=== PATIENT | female | born 1975 | race Two or more races ===

== ENCOUNTER 2021-09-12 00:26 | Emergency (ER) | payer SELFPAY ==
[~2021-09-12] VITALS: Ht 152.4 cm; Wt 79.9 kg
[2021-09-12 00:58] LABS: BASO % 1 % (0-3); EOS # 0.1 x10^3/uL (0.0-0.7); EOS % 1 % (0-3); HEMATOCRIT 35.9 % (36.0-47.0); HEMOGLOBIN 11.7 g/dL (12.0-15.5); LYMPH # 2.4 x10^3/uL (1.0-4.8); LYMPH % 26 % (24-48); MEAN CORPUSCULAR HEMOGLOBIN 28 pg (25-35); MEAN CORPUSCULAR HGB CONC 33 g/dL (31-37); MEAN CORPUSCULAR VOLUME 86 fL (79-100); MONO # 0.5 x10^3/uL (0.0-1.1); MONO % 5 % (0-9); NEUT # 6.2 x10^3/uL (1.8-7.7); NEUT % 68 % (31-73); PLATELET COUNT 252 x10^3/uL (140-400); RED BLOOD COUNT 4.19 x10^6/uL (3.50-5.40); RED CELL DISTRIBUTION WIDTH 14.3 % (11.5-14.5); WHITE BLOOD COUNT 9.2 x10^3/uL (4.0-11.0)
[2021-09-12 01:00] LABS: U PREG PATIENT NEGATIVE (NEG)
[2021-09-12] MEDS ORDERED: IV NORMAL SALINE 1000ML BAG 1,000 ML IV ONE (01:00)
[2021-09-12] MEDS ORDERED: ONDANSETRON PF 4 MG/2 ML VIAL. IVP ONE (01:00)
[2021-09-12] MEDS ORDERED: LIDO:MAALOX 1:1 20 ML SINGLE DOSE. SWSW ONE (01:00)
--- NOTE | 2021-09-12 01:00 | ED.ADGEN ---
Past Medical History Past Surgical History: Cholecystectomy, , Hysterectomy Smoking Status: Never Smoker Alcohol Use: None General Adult EDM: Chief Complaint: ABDOMINAL PAIN HPI: HPI: Patient is a 46 year old female coming in for epigastric pain. Pain getting worse at the day and got worse with food and apple. The spicy foods prior to pain starting. Took to omeprazole as they got no relief, I think she may have done the lab. That she has had multiple episodes of emesis. But no diarrhea or fevers. No known sick contacts or recent travel. Review of Systems: Review of Systems: All other systems within normal limits except for as noted in the HPI Current Medications: Current Medications Medications (Trade) Dose Ordered Sig/[place] Start Time Stop Time Status Last Admin Dose Admin Famotidine (Pepcid Vial) 20 mg 1X ONCE 09/12/21 02:00 09/12/21 02:01 Multi-Ingredient Mouthwash/Gargle (Gi Cocktail) 20 ml 1X ONCE 09/12/21 01:00 09/12/21 01:01 DC 09/12/21 01:01 20 ML Ondansetron HCl (Zofran) 4 mg 1X ONCE 09/12/21 01:00 09/12/21 01:01 DC 09/12/21 01:01 4 MG Sodium Chloride 1,000 ml @ 1,000 mls/hr 1X ONCE 09/12/21 01:00 09/12/21 01:59 DC 09/12/21 01:00 1,000 MLS/HR Allergies: Allergies: Allergies Coded Allergies Type Severity Reaction Last Updated Verified Penicillins Allergy Intermediate Rash 09/12/21 Yes Physical Exam: PE: Constitutional: Well developed, well nourished, no acute distress, non-toxic appearance. [] HENT: Normocephalic, atraumatic, bilateral external ears normal, nose normal. [] Eyes: PERRLA, conjunctiva normal, no discharge. [] Neck: No rigidity, supple, no stridor. [] Cardiovascular: Regular rate and rhythm, brisk cap refill [] Lungs & Thorax: Non labored symmetric respirations, no tachypnea or respiratory distress [] Abdomen: Soft, nondistended, epigastric tenderness, negative Felder's sign and McBurney's point tenderness. Skin: Warm, dry, no erythema, no rash. [] Back: Unremarkable Extremities: No deformities, range of motion grossly intact, no lower extremity edema [] Neurologic: Alert and oriented X 3, no focal deficits noted. [] Psychologic: Affect normal, judgement normal, mood normal. [] Current Patient Data: Labs: Laboratory Tests Test 09/12/21 00:35 09/12/21 00:40 Urine Test Negative (NEG) White Blood Count 9.2 x10^3/uL (4.0-11.0) Red Blood Count 4.19 x10^6/uL (3.50-5.40) Hemoglobin 11.7 g/dL (12.0-15.5) L Hematocrit 35.9 % (36.0-47.0) L Mean Corpuscular Volume 86 fL (79-100) Mean Corpuscular Hemoglobin 28 pg (25-35) Mean Corpuscular Hemoglobin Concent 33 g/dL (31-37) Red Cell Distribution Width 14.3 % (11.5-14.5) Platelet Count 252 x10^3/uL (140-400) Neutrophils (%) (Auto) 68 % (31-73) Lymphocytes (%) (Auto) 26 % (24-48) Monocytes (%) (Auto) 5 % (0-9) Eosinophils (%) (Auto) 1 % (0-3) Basophils (%) (Auto) 1 % (0-3) Neutrophils # (Auto) 6.2 x10^3/uL (1.8-7.7) Lymphocytes # (Auto) 2.4 x10^3/uL (1.0-4.8) Monocytes # (Auto) 0.5 x10^3/uL (0.0-1.1) Eosinophils # (Auto) 0.1 x10^3/uL (0.0-0.7) Basophils # (Auto) 0.0 x10^3/uL (0.0-0.2) Sodium Level 139 mmol/L (136-145) Potassium Level 3.6 mmol/L (3.5-5.1) Chloride Level 102 mmol/L (98-107) Carbon Dioxide Level 24 mmol/L (21-32) Anion Gap 13 (6-14) Blood Urea Nitrogen 9 mg/dL (7-20) Creatinine 0.6 mg/dL (0.6-1.0) Estimated GFR (Cockcroft-Gault) 108.6 BUN/Creatinine Ratio 15 (6-20) Glucose Level 118 mg/dL (70-99) H Calcium Level 8.5 mg/dL (8.5-10.1) Total Bilirubin 0.5 mg/dL (0.2-1.0) Aspartate Amino Transferase (AST) 321 U/L (15-37) H Alanine Aminotransferase (ALT) 180 U/L (14-59) H Alkaline Phosphatase 128 U/L (46-116) H Total Protein 7.9 g/dL (6.4-8.2) Albumin 3.6 g/dL (3.4-5.0) Albumin/Globulin Ratio 0.8 (1.0-1.7) L Lipase 114 U/L (73-393) Laboratory Tests 09/12/21 00:40 Laboratory Tests 09/12/21 00:40 Vital Signs: Vital Signs Date Time Temp Pulse Resp B/P (MAP) Pulse Ox O2 Delivery O2 Flow Rate FiO2 09/12/21 01:37 62 16 165/70 (101) 100 Room Air 09/12/21 00:30 98.3 98.3 EKG: EKG: [] Heart Score: C/O Chest Pain: No Risk Factors: Risk Factors: DM, Current or recent (<one month) smoker, HTN, HLP, family history of CAD, obesity. Risk Scores: Score 0 - 3: 2.5% MACE over next 6 weeks - Discharge Home Score 4 - 6: 20.3% MACE over next 6 weeks - Admit for Clinical Observation Score 7 - 10: 72.7% MACE over next 6 weeks - Early Invasive Strategies Radiology/Procedures: Radiology/Procedures: Pain improved with GI cocktail. Discharged with return precautions and instructions for treating gastritis. [] Course & Med Decision Making: Course & Med Decision Making Pertinent Labs and Imaging studies reviewed. (See chart for details) [] Mohamud Disclaimer: Mohamud Disclaimer: This electronic medical record was generated, in whole or in part, using a voice recognition dictation system. Departure Departure Impression: Primary Impression: Gastritis Additional Impression: Nausea, vomiting, and diarrhea Disposition: HOME / SELF CARE / HOMELESS Condition: STABLE Patient Instructions: Gastritis, Adult Scripts Sucralfate (SUCRALFATE) 1 Gm Tablet 1 TAB PO TID PRN for ABDOMINAL PAIN for 10 Days, #30 TAB 11 Refills Prov: HERMAN FLORES MD 09/12/21 Famotidine (FAMOTIDINE) 20 Mg Tablet 20 MG PO BID for antacid for 30 Days, #60 TAB Prov: HERMAN FLORES MD 09/12/21 Ondansetron (ONDANSETRON ODT) 4 Mg Tab.rapdis 1 TAB PO PRN Q6-8HRS PRN for NAUSEA, #10 TAB Prov: HERMAN FLORES MD 09/12/21 Problem Qualifiers HERMAN FLORES MD Sep 12, 2021 01:00
[2021-09-12 01:04] LABS: CALCIUM 8.5 mg/dL (8.5-10.1); CREATININE 0.6 mg/dL (0.6-1.0); GFR 108.6; POTASSIUM 3.6 mmol/L (3.5-5.1)
[2021-09-12 01:09] LABS: ALBUMIN 3.6 g/dL (3.4-5.0); ALBUMIN/GLOBULIN RATIO 0.8 (1.0-1.7); TOTAL BILIRUBIN 0.5 mg/dL (0.2-1.0); TOTAL PROTEIN 7.9 g/dL (6.4-8.2)
[2021-09-12] MEDS ORDERED: SUCRALFATE 1 GM TABLET. PO ONE (02:00)
[2021-09-12] MEDS ORDERED: FAMOTIDINE 20 MG/2 ML VIAL IVP ONE (02:00)
[2021-09-12] MEDS ORDERED: SUCR1TAB PO (02:05)
[2021-09-12] MEDS ORDERED: ONDA4TAB12 PO (02:05)
[2021-09-12] MEDS ORDERED: FAMO20TA5 PO (02:05)
[2021-09-12] MEDS ORDERED: MORPHINE SULFATE 4 MG/ML INJ. IV ONE (02:15)
[2021-09-12 02:34] VITALS: BP 158/69
== END 2021-09-12 02:35 | disposition home or self-care (01) ==
LOC: ER 00:26
DX: K29.70 Gastritis, unspecified, without bleeding (principal); R11.2 Nausea with vomiting, unspecified; R19.7 Diarrhea, unspecified; Z90.49 Acquired absence of other specified parts of digestive tract; Z90.710 Acquired absence of both cervix and uterus; Z88.2 Allergy status to sulfonamides
CPT/HCPCS: 36415; 80053; 81025; 83690; 85025; 96374; 96375; 99285; J2270; J2405; J3490; J7030; 96361